=== PATIENT | female | born 1960 | race Caucasian/White ===

== ENCOUNTER 2017-09-17 22:08 | Emergency (ER) | payer OTHER ==
[~2017-09-17] VITALS: Ht 175.3 cm; Wt 95.3 kg
--- NOTE | ~2017-09-17 | EKG ---
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
[~2017-09-17 22:08] MED LIST: CELEXA10 MG PO; FLEXERIL PO; GABAPENTIN 100100 MG PO; IBUPROFEN 800800 M1 PO
[2017-09-17] MEDS ORDERED: SYNTHROID112 MCG PO (22:12)
[2017-09-17 22:47] LABS: ABSOLUTE BASOPHILS 0.1 thou/uL (0.0-0.2); ABSOLUTE EOSINOPHILS 0.2 thou/uL (0.0-0.7); ABSOLUTE LYMPHOCYTES 2.2 thou/uL (0.8-5.3); ABSOLUTE MONOCYTES 0.5 thou/uL (0.0-1.2); ABSOLUTE NEUTROPHILS 3.8 thou/uL (1.6-8.1); EOSINOPHILS 2.2 %; HEMATOCRIT 35.6 % (37.0-47.0); LYMPHOCYTES 33.1 %; MCH 30.2 pg (26.0-34.0); MCHC 33.8 g/dL (28.0-37.0); MCV 89.3 fL (80.0-100.0); MONOCYTES 7.2 %; MPV 8.5 fl. (7.2-11.1); NUCLEATED RBCS 0 /100WBC; PLATELET COUNT* 276 thou/uL (150-400); POLYS 56.5 %; RBC 3.99 mil/uL (4.20-5.00); RDW-CV 13.5 % (10.5-14.5); WBC 6.8 thou/uL (4.0-11.0)
[2017-09-17 22:55] LABS: ANION GAP 10 mmol/L (7-16); BUN 11 mg/dL (7-18); CALCIUM 9.2 mg/dL (8.5-10.1); CHLORIDE 104 mmol/L (98-107); CO2 28 mmol/L (21-32); CREATININE 0.9 mg/dL (0.6-1.3); GLUCOSE 105 mg/dL (70-99); POTASSIUM 3.2 mmol/L (3.5-5.1); SODIUM 142 mmol/L (136-145)
[2017-09-17 23:06] LABS: ALBUMIN 3.6 g/dL (3.4-5.0); ALKALINE PHOSPHATASE 65 U/L (46-116); NT-PRO BRAIN NAT PEPTIDE 17 pg/mL (<300); SGOT 12 U/L (15-37); SGPT 21 U/L (30-65); TOTAL BILIRUBIN 0.2 mg/dL (<0.1-1.0); TOTAL PROTEIN 6.6 g/dL (6.4-8.2)
[2017-09-17 23:21] LABS: TROPONIN-I LEVEL <0.06 ng/mL (<0.06)
[2017-09-18 00:47] LABS: APTT 28.9 Seconds (25.0-31.3); PROTIME 10.1 Seconds (9.20-11.50)
[2017-09-18 01:00] VITALS: BP 121/92
[2017-09-18] MEDS ORDERED: NORCO 5-325 TA1 EACH PO (01:04)
--- NOTE | 2017-09-18 11:02 | EKG ---
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 : 1960 Requested By: Felicitas Taylor Order Number: [id number] Reginald MD: Edson Arredondo Measurements Intervals [place] Rate: 97 P: -4 MT: 146 QRS: -29 QRSD: 90 T: 21 QT: 365 QTc: 464 Interpretive Statements Sinus rhythm Probable left atrial enlargement Abnormal R-wave progression, early transition Inferior infarct, old Baseline wander in lead(s) V3,V5 No previous ECG available for comparison Electronically Signed On 09-18-2017 11:02:46 PSYCHOLOGY TECH by Edson Arredondo [email or web address] <ELECTRONICALLY SIGNED> By: Edson Arredondo MD, [facility] 09/18/17 1102 2216 2216 Edson Arredondo MD, [facility] /EPI
--- NOTE | 2017-09-18 11:03 | EKG ---
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1960 Requested By: Felicitas Taylor Order Number: [id number] Reginald MD: Edson Arredondo Measurements Intervals [place] Rate: 97 P: -4 UT: 146 QRS: -29 QRSD: 90 T: 21 QT: 365 QTc: 464 Interpretive Statements Sinus rhythm Probable left atrial enlargement Abnormal R-wave progression, early transition Inferior infarct, old Baseline wander in lead(s) V3,V5 No previous ECG available for comparison Electronically Signed On 09-18-2017 11:03:00 WORD PROCESSING SPECIALIST by Edson Arredondo [email or web address] <ELECTRONICALLY SIGNED> By: Edson Arredondo MD, [facility] 09/18/17 1103 2216 2216 Edson Arredondo MD, [facility] /EPI
== END 2017-09-18 01:26 | disposition home or self-care (01) ==
LOC: M.ERS 22:08
PROVIDERS: Personal Emergency Response Attendant
DX: R07.89 Other chest pain (principal); M79.1 Myalgia; F10.99 Alcohol use, unspecified with unspecified alcohol-induced disorder; Z88.5 Allergy status to narcotic agent